=== PATIENT | female | born 1975 | race Caucasian/White ===

== ENCOUNTER → 2020-03-20 | Outpatient (CLI) | payer OTHER ==
[~2020-03-20] MED LIST: ADVAIRDISKUS; ASPIRIN325; CEFTIN 250 MG250 MG PO; CLONAZEPAM PO; CYMBALTA60 MG PO; IMIPRAMINE HCL25 MG PO; LAMICTAL XR100 MG PO; LITHIUM CARBON600 MG PO; LOPERAMIDE 2 MG2 M1 PO; NORCO 5-325 TA1 EACH PO; ORTHO EVRA PAT1 EACH TD; ORTHO TRI-CYCL1 EACH PO; SEROQUEL XR150 MG PO; ZOFRAN ODT4 MG PO
== END ==
LOC: LAB 14:43
PROVIDERS: ATTEND Anesthesiology
DX: Z01.812 Encounter for preprocedural laboratory examination (principal); Z20.828 Contact with and (suspected) exposure to other viral communicable diseases